=== PATIENT | male | born 1970 | race African-American/Black ===

== ENCOUNTER 2018-01-17 00:48 | Observation (INO) ==
[2018-01-17] MEDS ORDERED: Morphine Inj 4 MG/ML Vial IV.PUSH ONE (01:06)
--- NOTE | 2018-01-17 01:10 | ED ---
HPI General Chief complaint: Chest Pain Stated complaint: Medical Time Seen by Provider: 01/17/18 01:05 Source: patient and family Mode of arrival: ambulatory Limitations: no limitations History of Present Illness HPI narrative: 47-year-old male with history of sleep apnea here for evaluation of chest pain. Patient reports that the pain started 2 days ago, has been constant, described as "gas pains", is over his left chest and radiates to his left shoulder, left neck, and left shoulder blade, currently 8 out of 10, worse with movements and exertion. Patient reports that he has had a cough for the last couple of days which is nonproductive. No hemoptysis. No known history of cardiac disease. He is a non-smoker. No known family history of cardiac disease. He does report history of increased cholesterol, however he does not take any medications for this. No paresthesias or motor deficits. No history of DVT or PE. His pain significantly worsened tonight, and he had a difficult time breathing while lying in bed. Related Data Home Medications Medication Instructions Recorded Confirmed simvastatin 10 mg PO QPM 01/17/18 01/17/18 Allergies Allergy/AdvReac Type Severity Reaction Status Date / Time No Known Allergies Allergy Verified 01/17/18 00:55 Review of Systems ROS: all other systems reviewed are negative [facility] Medical History Medical History Hypercholesteremia (Acute) Sleep apnea (Acute) Surgical History Surgical History Hx of tonsillectomy (Acute) Social History Social History Smoking Status: Never smoker How Often Do You Have a Drink Containing Alcohol: 2 to 4 times a month Recent Travel in [facility] within the Last 8 Weeks: No Recent Out of Country Travel within the Last 8 Weeks: No Exam Narrative Exam Narrative: GENERAL: Well-developed, well-nourished, no apparent distress. SKIN: Focused skin assessment warm/dry. HEAD: Atraumatic. Normocephalic. EYES: Pupils equal and round. No scleral icterus. No injection or drainage. ENT: No nasal bleeding or discharge. NECK: Trachea midline. No JVD. CARDIOVASCULAR: Regular rate and rhythm. No murmur appreciated. RESPIRATORY: No accessory muscle use. Clear to auscultation. Breath sounds equal bilaterally. GASTROINTESTINAL: Abdomen soft, non-tender, nondistended. MUSCULOSKELETAL: No obvious deformities. No clubbing. No cyanosis. No edema. NEUROLOGICAL: Awake and alert. No obvious cranial nerve deficits. Motor grossly within normal limits. Normal speech. PSYCHIATRIC: Appropriate mood and affect; insight and judgment normal. Course Initial Documented Vital Signs Temperature 98.3 F 01/17/18 00:51 Pulse Rate 103 H 01/17/18 00:51 Respiratory Rate 18 01/17/18 00:51 Blood Pressure 135/85 01/17/18 00:51 Pulse Oximetry 100 12 00:51 Last Documented Vital Signs Temperature 98.3 F 01/17/18 00:51 Pulse Rate 69 01/17/18 03:43 Respiratory Rate 20 01/17/18 03:43 Blood Pressure 124/80 01/17/18 03:43 Pulse Oximetry 99 01/17/18 03:43 Medical Decision Making MDM Narrative Medical decision making narrative: Labs, vitals, and imaging studies were reviewed and reviewed with the patient. CBC and CMP are unremarkable. Cardiac enzymes are negative. D-dimer 0.48. Chest x-ray shows no acute disease. EKG does not show any signs of ischemia. Patient was given a full aspirin, 1 sublingual nitroglycerin, and 2 mg of morphine. His pain was slightly improved. He does have a pleuritic component to his pain as well as tenderness to his left anterior chest wall. His pulses are brisk and equal bilaterally, and has equal blood pressures bilaterally. CT pulmonary angiogram will be ordered to rule out PE as well as to possibly identify another etiology for his chest pain. CT pulmonary angiogram: CONCLUSION:1. Small right upper lobe infiltrate.2. No pulmonary emboli The patient was made aware of all findings. The morphine that he received earlier made him diaphoretic, nauseous, and lightheaded at that time. He was given a dose of Toradol, however he still complaining of left-sided chest pain. He has been having a nonproductive cough for the last 3 days. Although the infiltrate on the CT scan is on the right upper lobe, the patient's pain is mainly over his left chest and radiates to his left arm and left neck. I still cannot rule out cardiac etiology at this time even though his initial cardiac workup is unremarkable. His EKG shows no signs of ischemia. I discussed the case with hospitalist Dr. Cazares who recommends admission to the chest pain center for further cardiac evaluation. He will be started on Levaquin for his pulmonary infiltrate. The patient is amenable to this plan. Medical Screen Exam Complete: Yes Emergency Medical Condition: Yes Differential Diagnosis Differential Diagnosis: ACS, pneumothorax, pericarditis, PE, pneumonia, dissection, muscular skeletal pain Lab Data Result diagrams: 01/17/18 01:45 01/17/18 01:45 Lab Results 01/17/18 01/17/18 01/17/18 Range/Units 01:45 01:45 01:45 WBC 7.6 (4.0-11.0) th/mm3 RBC 5.20 (4.50-5.90) mil/mm3 Hgb 12.7 L (13.0-17.0) gm/dL Hct 39.1 (39.0-51.0) % MCV 75.2 L (80.0-100.0) fL MCH 24.4 L (27.0-34.0) pg MCHC 32.4 (32.0-36.0) % RDW 14.5 (11.6-17.2) % Plt Count 323 (150-450) th/mm3 MPV 8.2 (7.0-11.0) fL Neut % (Auto) 60.2 (16.0-70.0) % Lymph % (Auto) 30.1 (9.0-44.0) % Callahan % (Auto) 7.0 (0.0-8.0) % Eos % (Auto) 2.1 (0.0-4.0) % Baso % (Auto) 0.6 (0.0-2.0) % Neut # (Auto) 4.6 (1.8-7.7) th/mm3 Lymph # (Auto) 2.3 (1.0-4.8) th/mm3 Callahan # (Auto) 0.5 (0.0-0.9) th/mm3 Eos # (Auto) 0.2 (0.0-0.4) th/mm3 Baso # (Auto) 0.0 (0.0-0.2) th/mm3 WBC Differential . Differential Comment Auto diff final PT 10.6 (9.8-11.6) sec INR 1.0 Ratio APTT 28.2 (23.4-31.7) sec D-Dimer Quant (PE/DVT) 0.48 (0.00-0.50) mg/L FEU Sodium 137 (136-145) meq/L Potassium 3.8 (3.5-5.1) meq/L Chloride 101 (98-107) meq/L Carbon Dioxide 29.6 (21.0-32.0) meq/L Anion Gap 6 (5-15) meq/L BUN 13 (7-18) mg/dL Creatinine 1.03 (0.60-1.30) mg/dL Estimated GFR Greater than 89 (>89) mL/min Random Glucose 94 (74-106) mg/dL Calcium 8.9 (8.5-10.1) mg/dL Total Bilirubin 0.4 (0.2-1.0) mg/dL AST 19 (15-37) U/L ALT 25 (12-78) U/L Alkaline Phosphatase 88 (45-117) U/L Total Creatine Kinase 112 (39-308) U/L CK-MB (CK-2) Less than 1.0 (0.5-3.6) ng/mL Troponin I Less than 0.02 L (0.02-0.05) ng/mL Total Protein 9.4 H (6.4-8.2) g/dL Albumin 3.5 (3.4-5.0) g/dL Imaging Data Radiologist's impression: Chest X-Ray 01/17/18 01:06 CONCLUSION: Negative examination. Chest CTA 01/17/18 02:45 CONCLUSION: 1. Small right upper lobe infiltrate. 2. No pulmonary emboli. ECG Data Attestation: I personally reviewed and interpreted this ECG as follows: (Sinus, rate 93, normal axis, normal intervals, nonspecific T wave abnormalities, no ST segment abnormalities) Discharge Plan Discharge Disposition Patient Disposition: ED Admit(ED Internal Use Only) Discharge Condition Condition: Stable Discharge Details Diagnosis: Chest pain, Pneumonia Physicians Team ED Provider: Ismael Patel Primary Care Provider: Primary Care Kerry Zapata Rxs /Orders / Referrals /Forms Prescriptions: No Action simvastatin 10 mg Tablet 10 mg PO QPM RF: 0 Discharge Instructions Patient Printed Instructions: Chest Pain (ED) Discharge Interventions Interventions: Vital Signs Last Done: 01/17/18 00:55 Status ED Status: With Doctor
--- NOTE | 2018-01-17 01:40 | XR ---
EXAM DATE: 01/17/2018 1:34 AM EST AGE/SEX: 47 years / Male INDICATIONS: Chest pain. CLINICAL DATA: This is the patient's initial encounter. Patient reports that signs and symptoms have been present for 1 day and indicates a pain score of 4/10. MEDICAL/SURGICAL HISTORY: None. None. COMPARISON: No prior exams available for comparison. FINDINGS: A single AP view of the chest demonstrates the lungs to be symmetrically aerated without evidence of mass, infiltrate or effusion. The cardiomediastinal contours are unremarkable. Osseous structures a re intact. CONCLUSION: Negative examination. Electronically signed by: Ravinder Reyes MD 01/17/2018 1:38 AM EST
[2018-01-17 02:09] LABS: Baso % (Auto) 0.6 % (0.0-2.0); Eos # (Auto) 0.2 th/mm3 (0.0-0.4); Eos % (Auto) 2.1 % (0.0-4.0); Hematocrit 39.1 % (39.0-51.0); Hemoglobin 12.7 gm/dL (13.0-17.0); Lymph # (Auto) 2.3 th/mm3 (1.0-4.8); Lymph % (Auto) 30.1 % (9.0-44.0); Mean Corpuscular HGB Conc 32.4 % (32.0-36.0); Mean Corpuscular Hemoglobin 24.4 pg (27.0-34.0); Mean Corpuscular Volume 75.2 fL (80.0-100.0); Mean Platelet Volume 8.2 fL (7.0-11.0); Mono # (Auto) 0.5 th/mm3 (0.0-0.9); Neut # (Auto) 4.6 th/mm3 (1.8-7.7); Neut % (Auto) 60.2 % (16.0-70.0); Platelet Count 323 th/mm3 (150-450); Red Cell Distribution Width 14.5 % (11.6-17.2); White Blood Count 7.6 th/mm3 (4.0-11.0)
[2018-01-17 02:19] LABS: Activated Partial Thrombo Time 28.2 sec (23.4-31.7); D-Dimer 0.48 mg/L FEU (0.00-0.50); Prothrombin Time 10.6 sec (9.8-11.6)
[2018-01-17 02:21] LABS: Alanine Aminotransferase 25 U/L (12-78); Albumin 3.5 g/dL (3.4-5.0); Anion Gap 6 meq/L (5-15); Aspartate Aminotransferase 19 U/L (15-37); Blood Urea Nitrogen 13 mg/dL (7-18); Calcium 8.9 mg/dL (8.5-10.1); Carbon Dioxide 29.6 meq/L (21.0-32.0); Chloride 101 meq/L (98-107); Glomerular Filtration Rate Greater Than 89 mL/min (>89); Glucose,Random 94 mg/dL (74-106); Potassium 3.8 meq/L (3.5-5.1); Sodium 137 meq/L (136-145)
[2018-01-17 02:25] LABS: Alkaline Phosphatase 88 U/L (45-117); Creatine Kinase 112 U/L (39-308); Total Protein 9.4 g/dL (6.4-8.2)
[2018-01-17] MEDS ORDERED: Ketorolac Inj 30 MG/ML (IVP) Vial IV.PUSH ONE ×2 (03:00→09:00)
--- NOTE | 2018-01-17 03:46 | CT ---
EXAM DATE: 01/17/2018 3:18 AM EST AGE/SEX: 47 years / Male INDICATIONS: Left side chest pain. CLINICAL DATA: This is the patient's initial encounter. Patient reports that signs and symptoms have been present for 1 day and indicates a pain score of 8/10. MEDICAL/SURGICAL HISTORY: None. None. RADIATION DOSE: 10.72 CTDI (mGy) COMPARISON: No prior exams available for comparison. TECHNIQUE: Volumetric scanning was performed using a multi-row detector CT scanner during bolus infu gabe of 75 ml Omnipaque 350 (iohexol) nonionic water-soluble contrast as a single exam dose. The fausto a was post processed with a variety of visualization algorithms including full volume maximum intensi ty projection and sliding thin slab reformation. Using automated exposure control and adjustment of t he mA and/or kV according to patient size, radiation dose was kept as low as reasonably achievable to obtain optimal diagnostic quality images. DICOM format image data is available electronically for r eview and comparison. FINDINGS: Pulmonary Arteries: No filling defects are seen in the pulmonary arteries out to the subsegmental ve ssels. The left and right pulmonary arteries are normal in diameter. Lung: A small upper lobe intra-alveolar infiltrate.. Effusion: None. Mediastinum: No evidence of mediastinal or hilar adenopathy. Other: The axilla is unremarkable. CONCLUSION: 1. Small right upper lobe infiltrate. 2. No pulmonary emboli. Electronically signed by: Ravinder Reyes MD 01/17/2018 3:44 AM EST
[2018-01-17] MEDS ORDERED: levoFLOXacin 750 MG Tablet PO ONE (04:01)
[2018-01-17 04:52] LABS: Creatine Kinase 105 U/L (39-308)
[2018-01-17] MEDS ORDERED: Acetaminophen 500 MG Tablet PO PRN (07:30)
--- NOTE | 2018-01-17 08:31 | P.HPCA ---
History of Present Illness Primary Care Physician: Primary Care Physician in [facility] does not recall name Chief Complaint: Chest pain History of Present Illness: 47-year-old male with history of hyperlipidemia and sleep apnea presents the emergency room for further evaluation of chest pain. Onset Sunday morning upon awakening. Location began on right side of chest since moved to left anterior chest. Characterized as tightness with radiation to mid back and left scapula. Duration constant. Severe in severity. Does not necessarily hurt to take a deep breath although endorses certain movements of left shoulder and neck makes pain worse and palpation of chest/scapula. Associated symptoms include mild dyspnea and diaphoresis. No nausea or vomiting. Denies similar pain in the past. Precipitating factors moving left arm and states "I cannot get comfortable, all movement hurts." Bending over relieves pain somewhat. Took [id number] Tylenol, Motrin, and Gas-X without relief. Endorses recent cold-like symptoms beginning Sunday. No known fever, abdominal pain, or change in bowel habit. Increased nonproductive cough last few dasy. Poor appetite since Sunday. Past cardiac testing None Social history Known hyperlipidemia. No known diabetes, hypertension, coronary artery disease. Lifelong non-smoker. Occasional alcoholic beverage weekly. No recreational drug use. Endorses an active lifestyle. Lives with sophia, recently relocated from [facility] Family history Noncontributory for early onset cardiovascular disease. - Diagnosis (1) Atypical chest pain (2) Pneumonia Review of Systems All other systems reviewed negative except as stated [facility] - History History Provided By: Patient - Medical History Medical History: Medical History (Last Reviewed 01/17/18 @ 11:11 by DEWEY Corado) Hypercholesteremia Sleep apnea - Surgical History Surgical History: Surgical History (Last Reviewed 01/17/18 @ 11:11 by DEWEY Corado) Hx of tonsillectomy - Tobacco History Second Hand Smoke Exposure: No Tobacco Use In Past 30 Days: No Smoking Status: Never smoker - Alcohol History How Often Do You Have a Drink Containing Alcohol: 2 to 4 times a month - Substance Use History Substance History: No History of Abuse - Travel History Recent Travel in the [place] Within the Last 8 Weeks: No Recent Travel Out of the Country Within the Last 8 Weeks: No - Immunization History Tetanus Immunization: >5 Years Medications and Allergies Active Medications: Active Medications Acetaminophen (Tylenol) 500 mg PO Q4H PRN PRN Reason: HEADACHE Ondansetron HCl (Zofran Inj) 4 mg IV.PUSH Q6H PRN PRN Reason: NAUSEA Sodium Chloride (Ns Flush) 2 ml IV.FLUSH UNSCH PRN PRN Reason: FLUSH AFTER USING IV ACCESS Sodium Chloride (Ns Flush) 2 ml IV.FLUSH BID SALINA Sodium Chloride (Ns Flush) 2 ml IV.FLUSH PRN PRN PRN Reason: FLUSH AFTER USING IV ACCESS Allergies Allergy/AdvReac Type Severity Reaction Status Date / Time No Known Allergies Allergy Verified 01/17/18 00:55 Home Medications Medication Instructions Recorded Confirmed Type simvastatin 10 mg PO QPM 01/17/18 01/17/18 History Exam Vital signs: Vital Signs 01/17/18 00:51 01/17/18 00:55 01/17/18 01:18 Temperature 98.3 F Pulse Rate 103 H 82 Respiratory Rate 18 20 20 Blood Pressure 135/85 139/86 Pulse Oximetry 100 97 99 01/17/18 01:19 01/17/18 03:43 01/17/18 05:02 Temperature 97.7 F Pulse Rate 69 75 Respiratory Rate 20 18 Blood Pressure 142/89 H 124/80 93/79 L Pulse Oximetry 99 98 01/17/18 06:17 01/17/18 07:49 Temperature 97.5 F L Pulse Rate 73 76 Respiratory Rate 16 Blood Pressure 106/76 Pulse Oximetry 94 L Intake & Output 01/16/18 01/17/18 01/17/18 18:59 06:59 18:59 Weight 108.862 kg Other: Weight On Admission 108.862 kg Narrative: GENERAL: Alert WN, WD, NAD, pleasant, obese -[place] Citizen male HEAD: NC, AT EYES: Sclera clear, conjunctiva without injection ENT: Mucous membranes pink and moist NECK: Supple, no masses, trachea midline CV: RRR, without murmur, rub, gallop, no JVD, S1-S2. Left anterior chest pain easily reproducible with light palpation. RESP: Rales right upper lobe. No wheeze. symmetrical chest rise, nonlabored, able to speak in full sentences ABD: Soft, NT, ND, no masses, positive bowel tones BACK: No scoliosis EXT: Pulses +2x4, no dependent edema MS: Normal tone x4 extremities, nontender, no obvious deformities, full range of motion NEURO: Motor strength 5/5 PSYCH: A+O x3, pleasant affect, appropriate speech, mood insight and judgment SKIN: Normal turgor, normal texture, no lesions, no rashes, brisk cap refill, even hair distribution Results 01/17/18 01:45 01/17/18 01:45 Cardiac Enzymes 01/17/18 01/17/18 Range/Units 01:45 04:15 AST 19 (15-37) U/L CK-MB (CK-2) Less than 1.0 (0.5-3.6) ng/mL Troponin I Less than 0.02 L Less than 0.02 L (0.02-0.05) ng/mL Coagulation 01/17/18 Range/Units 01:45 PT 10.6 (9.8-11.6) sec APTT 28.2 (23.4-31.7) sec CBC 01/17/18 Range/Units 01:45 WBC 7.6 (4.0-11.0) th/mm3 RBC 5.20 (4.50-5.90) mil/mm3 Hgb 12.7 L (13.0-17.0) gm/dL Hct 39.1 (39.0-51.0) % Plt Count 323 (150-450) th/mm3 Neut # (Auto) 4.6 (1.8-7.7) th/mm3 Lymph # (Auto) 2.3 (1.0-4.8) th/mm3 [place]man # (Auto) 0.5 (0.0-0.9) th/mm3 Eos # (Auto) 0.2 (0.0-0.4) th/mm3 Baso # (Auto) 0.0 (0.0-0.2) th/mm3 Comprehensive Metabolic Panel 01/17/18 Range/Units 01:45 Sodium 137 (136-145) meq/L Potassium 3.8 (3.5-5.1) meq/L Chloride 101 (98-107) meq/L Carbon Dioxide 29.6 (21.0-32.0) meq/L BUN 13 (7-18) mg/dL Creatinine 1.03 (0.60-1.30) mg/dL Calcium 8.9 (8.5-10.1) mg/dL AST 19 (15-37) U/L ALT 25 (12-78) U/L Alkaline Phosphatase 88 (45-117) U/L Total Protein 9.4 H (6.4-8.2) g/dL Albumin 3.5 (3.4-5.0) g/dL Intake and Output 01/16/18 01/17/18 01/17/18 22:59 06:59 14:59 Other: Weight 108.862 kg Weight On Admission 108.862 kg - Imaging and Cardiology Imaging: Impressions Chest X-Ray 01/17/18 01:06 CONCLUSION: Negative examination. Chest CTA 01/17/18 02:45 CONCLUSION: 1. Small right upper lobe infiltrate. 2. No pulmonary emboli. EKG interpretations - EKG EKG results cardiology: sinus rhythm, normal axis, normal QRS, normal ST/T Caprini VTE Risk Assessment Caprini VTE Risk Assessment: No/Low Risk (score <= 1) Caprini Risk Assessment Model: Point Value = 1 Point Value = 2 Point Value = 3 Point Value = 5 Age 41-60 Minor surgery BMI > 25 kg/m2 Swollen legs Varicose veins or History of unexplained or recurrent spontaneous Oral contraceptives or hormone replacement Sepsis (< 1 month) Serious lung disease, including pneumonia (< 1 month) Abnormal pulmonary function Acute myocardial infarction Congestive heart failure (< 1 month) History of inflammatory bowel disease Medical patient at bed rest Age 61-74 Arthroscopic surgery Major open surgery (> 45 min) Laparoscopic surgery (> 45 min) Malignancy Confined to bed (> 72 hours) Immobilizing plaster cast Central venous access Age >= 75 History of VTE Family history of VTE Factor V Leiden Prothrombin [id number] Lupus anticoagulant Anticardiolipin antibodies Elevated serum homocysteine Heparin-induced thrombocytopenia Other congenital or acquired thrombophilia Stroke (< 1 month) Elective arthroplasty Hip, pelvis, or leg fracture Acute spinal cord injury (< 1 month) Prophylaxis Regimen: Total Risk Factor Score Risk Level Prophylaxis Regimen 0-1 Low Early ambulation 2 Moderate Order ONE of the following: *Sequential Compression Device (SCD) *Heparin 5000 units SQ BID 3-4 Higher Order ONE of the following medications: *Heparin 5000 units SQ TID *Enoxaparin/Lovenox 40 mg SQ daily (WT < 150 kg, CrCl > 30 mL/min) *Enoxaparin/Lovenox 30 mg SQ daily (WT < 150 kg, CrCl > 10-29 mL/min) *Enoxaparin/Lovenox 30 mg SQ BID (WT < 150 kg, CrCl > 30 mL/min) AND/OR *Sequential Compression Device (SCD) 5 or more Highest Order ONE of the following medications: *Heparin 5000 units SQ TID (Preferred with Epidurals) *Enoxaparin/Lovenox 40 mg SQ daily (WT < 150 kg, CrCl > 30 mL/min) *Enoxaparin/Lovenox 30 mg SQ daily (WT < 150 kg, CrCl > 10-29 mL/min) *Enoxaparin/Lovenox 30 mg SQ BID (WT < 150 kg, CrCl > 30 mL/min) AND *Sequential Compression Device (SCD) Assessment and Plan - Assessment (1) Atypical chest pain Code(s): R07.89 - Other chest pain Status: Acute Plan: Admit to chest pain center. ACS ruled out with 3 sets of EKGs and cardiac enzymes. Monitor on telemetry overnight. Will be seen in ED by Dr. Diego Her. Discomfort atypical for cardiac etiology, has been constant likely related to recent cold. Chest x-ray noted small right upper lobe infiltrate. Discomfort neuritic in nature. Further recommendation to follow after evaluation by instrumentation and controls designer. (2) Pneumonia Code(s): J18.9 - Pneumonia, unspecified organism Status: Acute Plan: Levaquin 500 mg p.o. daily for 7-day prescription will be provided upon discharge. Levaquin given in ER last evening. Instructed to follow-up with primary care provider after completing 7 days of antibiotic therapy to ensure pneumonia has resolved. Instructed if chest discomfort continues after pneumonia resolved discuss with primary care provider for outpatient cardiac testing. Verbalized understanding and agreeable to plan of care. H&P: Quality - VTE Deep Vein Thrombosis/Pulmonary Embolism Present on Admission: No (2) Pneumonia Qualifiers: Pneumonia type: due to unspecified organism Laterality: right Lung location : upper lobe of lung Qualified Code(s): J18.1 - Lobar pneumonia, unspecified organism
[2018-01-17 08:39] LABS: Troponin I 0.06 ng/mL (0.02-0.05)
--- NOTE | 2018-01-17 10:10 | P.PNCA ---
Subjective Interval history: This patient was seen and evaluated by the nurse practitioner and then after discussion I personally saw and examined the patient. The history as recorded is appropriate and accurate. Symptoms leading to his current presentation began about a weekend ago with what he describes as a cold and a cough. He had right-sided upper chest pain which gradually moved across to the left upper chest area. He has been evaluated in the chest pain center using standard protocol and has ruled out for ACS with negative enzymes and negative EKG. CTA of the chest did reveal right upper lobe infiltrate and with his presentation of cough pleuritic chest pain and a documented infiltrate I think it is clear that his current presentation is pulmonary rather than cardiac in origin. Further evaluation was discussed with the nurse practitioner my recommendation is for initiation of antibiotics with no further testing at this time. He is instructed to follow-up with his primary care physician 1 week from this date but to be sure he is cleared his pneumonia and in case he has ongoing symptoms that do require further evaluation. Medications and Allergies Active Medications: Active Medications Acetaminophen (Tylenol) 500 mg PO Q4H PRN PRN Reason: HEADACHE Ondansetron HCl (Zofran Inj) 4 mg IV.PUSH Q6H PRN PRN Reason: NAUSEA Sodium Chloride (Ns Flush) 2 ml IV.FLUSH UNSCH PRN PRN Reason: FLUSH AFTER USING IV ACCESS Sodium Chloride (Ns Flush) 2 ml IV.FLUSH BID SALINA Sodium Chloride (Ns Flush) 2 ml IV.FLUSH PRN PRN PRN Reason: FLUSH AFTER USING IV ACCESS Allergies Allergy/AdvReac Type Severity Reaction Status Date / Time No Known Allergies Allergy Verified 01/17/18 00:55 Home Medications Medication Instructions Recorded Confirmed Type simvastatin 10 mg PO QPM 01/17/18 01/17/18 History Physical Exam Vital signs: Vital Signs 01/17/18 00:51 01/17/18 00:55 01/17/18 01:18 Temperature 98.3 F Pulse Rate 103 H 82 Respiratory Rate 18 20 20 Blood Pressure 135/85 139/86 Pulse Oximetry 100 97 99 01/17/18 01:19 01/17/18 03:43 01/17/18 05:02 Temperature 97.7 F Pulse Rate 69 75 Respiratory Rate 20 18 Blood Pressure 142/89 H 124/80 93/79 L Pulse Oximetry 99 98 01/17/18 06:17 01/17/18 07:49 Temperature 97.5 F L Pulse Rate 73 76 Respiratory Rate 16 Blood Pressure 106/76 Pulse Oximetry 94 L Intake & Output 01/16/18 01/17/18 01/17/18 18:59 06:59 18:59 Weight 108.862 kg Other: Weight On Admission 108.862 kg Narrative: I am entirely in agreement with the history as documented by the nurse practitioner with the exception of: Rales were noted in the right upper posterior chest Results 01/17/18 01:45 01/17/18 01:45 Cardiac Enzymes 01/17/18 01/17/18 01/17/18 Range/Units 01:45 04:15 07:55 AST 19 (15-37) U/L CK-MB (CK-2) Less than 1.0 (0.5-3.6) ng/mL Troponin I Less than 0.02 L Less than 0.02 L 0.06 H (0.02-0.05) ng/mL Coagulation 01/17/18 Range/Units 01:45 PT 10.6 (9.8-11.6) sec APTT 28.2 (23.4-31.7) sec CBC 01/17/18 Range/Units 01:45 WBC 7.6 (4.0-11.0) th/mm3 RBC 5.20 (4.50-5.90) mil/mm3 Hgb 12.7 L (13.0-17.0) gm/dL Hct 39.1 (39.0-51.0) % Plt Count 323 (150-450) th/mm3 Neut # (Auto) 4.6 (1.8-7.7) th/mm3 Lymph # (Auto) 2.3 (1.0-4.8) th/mm3 [place] # (Auto) 0.5 (0.0-0.9) th/mm3 Eos # (Auto) 0.2 (0.0-0.4) th/mm3 Baso # (Auto) 0.0 (0.0-0.2) th/mm3 Comprehensive Metabolic Panel 01/17/18 Range/Units 01:45 Sodium 137 (136-145) meq/L Potassium 3.8 (3.5-5.1) meq/L Chloride 101 (98-107) meq/L Carbon Dioxide 29.6 (21.0-32.0) meq/L BUN 13 (7-18) mg/dL Creatinine 1.03 (0.60-1.30) mg/dL Calcium 8.9 (8.5-10.1) mg/dL AST 19 (15-37) U/L ALT 25 (12-78) U/L Alkaline Phosphatase 88 (45-117) U/L Total Protein 9.4 H (6.4-8.2) g/dL Albumin 3.5 (3.4-5.0) g/dL Intake and Output 01/16/18 01/17/18 01/17/18 22:59 06:59 14:59 Other: Weight 108.862 kg Weight On Admission 108.862 kg - Imaging and Cardiology Imaging: Impressions Chest X-Ray 01/17/18 01:06 CONCLUSION: Negative examination. Chest CTA 01/17/18 02:45 CONCLUSION: 1. Small right upper lobe infiltrate. 2. No pulmonary emboli. Assessment and Plan - Plan Patient has symptoms and findings consistent with a right upper lobe pneumonia. Chest pain is most likely pleuritic and associated. He will be treated as an outpatient with antibiotics with follow-up at 1 week's time with his primary care physician.
--- NOTE | 2018-01-17 11:49 | ECG ---
Date Performed: 01/17/2018 Time Performed: 04:20:08 PTAGE: 47 years EKG: Sinus rhythm Normal tracing no change PREVIOUS TRACING : 01/17/2018 01.05 DOCTOR: Diego Her Interpretating Date/Time 01/17/2018 11:48:49
--- NOTE | 2018-01-17 11:50 | ECG ---
Date Performed: 01/17/2018 Time Performed: 01:05:53 PTAGE: 47 years EKG: Sinus rhythm Normal tracing PREVIOUS TRACING : 01/17/2018 01.03 DOCTOR: Diego Her Interpretating Date/Time 01/17/2018 11:50:05
--- NOTE | 2018-01-18 14:48 | ECG ---
Date Performed: 01/17/2018 Time Performed: 08:09:35 PTAGE: 47 years EKG: Sinus rhythm WITH SINUS ARRHYTHMIA BORDERLINE ECG PREVIOUS TRACING : 01/17/2018 04.20 Since previous tracing, no significant change noted DOCTOR: Prosper Lester Interpretating Date/Time 01/18/2018 14:47:18
== END 2018-01-17 12:44 | disposition home or self-care (01) ==
LOC: NEPE 00:48 → NEDA 00:48 → NEPFCDU 04:50
PROVIDERS: ADMIT Internal Medicine Cardiovascular Disease; ATTEND Internal Medicine Cardiovascular Disease
DX: E78.00 Pure hypercholesterolemia, unspecified; J18.1 Lobar pneumonia, unspecified organism; R07.89 Other chest pain; E78.5 Hyperlipidemia, unspecified; G47.30 Sleep apnea, unspecified; R94.31 Abnormal electrocardiogram [ECG] [EKG]